=== PATIENT | female | born 1990 | race African-American/Black ===

== ENCOUNTER 2016-12-08 12:08 | Emergency (ER) | payer OTHER ==
[2016-12-08 12:11] VITALS: BP 132/83; PULSE 70; RESP 20; TEMP 100
[2016-12-08] MEDS ORDERED: ACETAMINOPHEN TAB 500 MG TAB PO STA (13:14)
--- NOTE | 2016-12-08 13:18 | ED ---
General Adult HPI - General Chief complaint: ENT Stated complaint: Sore Throat Time Seen by Provider: 12/08/16 12:59 Source: patient, RN notes reviewed Mode of arrival: ambulatory Limitations: no limitations - History of Present Illness Initial comments: This is a 26-year-old female who presents with a sore throat since . Patient states it hurts to swallow. Patient has noticed that she was felt "hot flashes "lately but has no measured fever. Patient denies any cough, congestion , otalgia, headache or sick contacts. Patient denies any abdominal pain, nausea /vomiting/diarrhea. Patient denies any chance of being . Patient denies any recent shortness breath, chest pain, back pain, numbness, tingling, hematuria, or visual changes, or any other complaints. - Related Data Home Medications Medication Instructions Recorded Confirmed Pnv with Ca,No.72/Iron/FA [Pnv 1 tab PO DAILY 06/30/16 06/30/16 Plus Multivit Tab] Previous Rx's Medication Instructions Recorded Amoxicillin 1,000 mg PO DAILY 10 Days 12/08/16 Lidocaine Viscous [Xylocaine 1 ml MUCOUS MEM Q3H 3 Days 12/08/16 Viscous 2%] Allergies Allergy/AdvReac Type Severity Reaction Status Date / Time No Known Allergies Allergy Verified 12/08/16 12:11 Review of Systems ROS Statement: Those systems with pertinent positive or pertinent negative responses have been documented in the HPI. ROS Other: All systems not noted in ROS Statement are negative. Past Medical History Past Medical History: No Reported History History of Any Multi-Drug Resistant Organisms: None Reported Past Surgical History: No Surgical Hx Reported Past Psychological History: No Psychological Hx Reported Smoking Status: Current every day smoker Past Alcohol Use History: Occasional Past Drug Use History: None Reported General Exam - General Exam Comments Initial Comments: General: The patient is awake and alert, in no distress, and does not appear acutely ill. Eye: Pupils are equal, round and reactive to light, extra-ocular movements are intact. No nystagmus. There is normal conjunctiva bilaterally. No signs of icterus. Ears: TMs pink and pearly with intact cone of light bilaterally. Normal external ear canals Nose: Nasal turbinates pink and moist Mouth and throat: There is erythematous posterior pharynx with tonsillar enlargement but no exudates. There are moist mucous membranes and no oral lesions. Neck: Posterior cervical chain lymphadenopathy and tender, anterior cervical chain lymphadenopathy present and tender. The neck is supple, there is no JVD. Cardiovascular: There is a regular rate and rhythm. No murmur, rub or gallop is appreciated. Respiratory: Lungs are clear to auscultation, respirations are non-labored, breath sounds are equal. No wheezes, stridor, rales, or rhonchi. Musculoskeletal: Normal ROM, no tenderness. Strength 5/5. Sensation intact. Radial pulses equal bilaterally 2+. Neurological: A&O x 3. CN II-XII intact, There are no obvious motor or sensory deficits. Coordination appears grossly intact. Speech is normal. Skin: Skin is warm and dry and no rashes or lesions are noted. Psychiatric: Cooperative, appropriate mood & affect, normal judgment. Limitations: no limitations Course Vital Signs 12/08/16 12:10 Temperature 100.0 F H Pulse Rate 70 Respiratory 20 Rate Blood Pressure 132/83 O2 Sat by Pulse 100 Oximetry Medical Decision Making - Medical Decision Making This is a 26-year-old female presents with sore throat since . On physical exam there is erythematous posterior pharynx with tonsillar enlargement but no exudates. There are moist mucous membranes and no oral lesions. Patient had a low-grade fever in the EC today and she was given Tylenol for this. A rapid strep was done and came back positive. I discussed the results with patient. I discussed that patient will be put on a course of amoxicillin. I discussed continued use of Tylenol and Motrin as needed for any pain or fever symptoms. I discussed the patient will be given a prescription for viscous lidocaine to help with sore throat symptoms. Discussed that this is contagious as patient has a young child at home. I discussed close follow- up with the patient's primary care physician in the next 1-2 days or to return to the [facility] for any worsening symptoms or for any further concerns. I discussed return parameters. Patient was receptive to this plan and patient will be discharged home - Lab Data Lab Results 12/08/16 Range/Units 13:19 Group A Strep Rapid Positive A (Negative) Disposition Clinical Impression: Strep throat Disposition: HOME SELF-CARE Condition: Good Instructions: Strep Throat (ED) Additional Instructions: Please finish the entire course of antibiotics. Please continue use of Tylenol and or Motrin as needed for any pain or fever symptoms. Please follow-up with your primary care physician in one to 2 days or return to the EC for any worsening symptoms or for any further concerns. Prescriptions: Amoxicillin 1,000 mg PO DAILY 10 Days Lidocaine Viscous [Xylocaine Viscous 2%] 1 ml MUCOUS MEM Q3H 3 Days Referrals: None,Stated [Primary Care Provider] - 1-2 days Maru Juarez MD [STAFF PHYSICIAN] - 1-2 days Michael Klein MD [STAFF PHYSICIAN] - 1-2 days Lavell Cordoba III, MD [STAFF PHYSICIAN] - 1-2 days Michelle Drake MD [REFERRING] - 1-2 days Time of Disposition: 13:48
== END 2016-12-08 13:54 | disposition home or self-care (01) ==
LOC: EC 12:08
DX: J02.0 Streptococcal pharyngitis (principal); F17.200 Nicotine dependence, unspecified, uncomplicated
CPT/HCPCS: 87430; 99283

== ENCOUNTER 2020-01-07 16:03 | Emergency (ER) | payer BC, OTHER ==
[2020-01-07 16:32] VITALS: BP 132/84; PULSE 97; RESP 18; TEMP 100
[2020-01-07] MEDS ORDERED: IBUPROFEN 600 MG TAB PO STA (17:21)
--- NOTE | 2020-01-07 17:37 | XR ---
EXAMINATION: XR chest 2V DATE AND TIME: 01/07/2020 5:11 PM CLINICAL INDICATION: PHH; cough TECHNIQUE: Departmental protocol COMPARISON: None FINDINGS: The lungs are clear. The pleural spaces are negative. The cardiac silhouette is not enlarged. The remainder of the mediastinal silhouette is unremarkable. The skeletal structures and soft tissues are negative for acute findings. IMPRESSION: NO ACUTE PROCESS.
--- NOTE | 2020-01-07 17:56 | ED ---
URI HPI - General Chief Complaint: Upper Respiratory Infection Stated Complaint: body aches/chest congestion Time Seen by Provider: 01/07/20 16:36 Source: patient Mode of arrival: ambulatory Limitations: no limitations - History of Present Illness Initial Comments: Patient is a 29-year-old female presents emergency Department with complaints of a cough, body aches, headache, generalized fatigue that started yesterday. Patient states the symptoms seem to be increasing today. She denies fever, abdominal pain. She does admit to mild nausea, no vomiting and no diarrhea. No urinary complaints. She denies history of asthma or COPD. She states her cough is nonproductive. She denies chest pain or shortness of breath. She has no other complaints at this time. Upon arrival to the ER, patient was febrile at 100.0, rest of vitals normal. - Related Data Home Medications Medication Instructions Recorded Confirmed Pnv,Calcium 72/Iron/Folic Acid 1 tab PO DAILY 06/30/16 06/30/16 [Pnv Plus Multivit Tab] Previous Rx's Medication Instructions Recorded Amoxicillin 1,000 mg PO DAILY 10 Days capsule 12/08/16 Lidocaine Viscous 2% [Xylocaine 1 ml MUCOUS MEM Q3H 3 Days ml 12/08/16 Viscous] Oseltamivir [Tamiflu] 75 mg PO Q12HR #10 cap 01/07/20 Allergies Allergy/AdvReac Type Severity Reaction Status Date / Time No Known Allergies Allergy Verified 01/07/20 16:29 Review of Systems ROS Statement: Those systems with pertinent positive or pertinent negative responses have been documented in the HPI. ROS Other: All systems not noted in ROS Statement are negative. Past Medical History Past Medical History: No Reported History History of Any Multi-Drug Resistant Organisms: None Reported Past Surgical History: No Surgical Hx Reported Past Psychological History: No Psychological Hx Reported Smoking Status: Current every day smoker Past Alcohol Use History: Occasional Past Drug Use History: None Reported General Exam - General Exam Comments Initial Comments: GENERAL: Well-appearing, well-nourished and in no acute distress. Patient appears mildly fatigued. HEAD: Atraumatic, normocephalic. EYES: Pupils equal round and reactive to light, extraocular movements intact, sclera anicteric, conjunctiva are normal. ENT: TMs normal, nares patent, oropharynx clear without exudates. Moist mucous membranes. NECK: Normal range of motion, supple without lymphadenopathy or JVD. LUNGS: Breath sounds clear to auscultation bilaterally and equal. No wheezes rales or rhonchi. HEART: Regular rate and rhythm without murmurs, rubs or gallops. ABDOMEN: Soft, nontender, normoactive bowel sounds. No guarding, no rebound. No masses appreciated. : Deferred EXTREMITIES: Normal range of motion, no pitting or edema. No clubbing or cyanosis. NEUROLOGICAL: Normal speech, normal gait. PSYCH: Normal mood, normal affect. SKIN: Warm, Dry, normal turgor, no rashes or lesions noted. Limitations: no limitations Course Vital Signs 01/07/20 16:30 Temperature 100 F H Pulse Rate 97 Respiratory 18 Rate Blood Pressure 132/84 O2 Sat by Pulse 100 Oximetry Medical Decision Making - Medical Decision Making Patient is a 29-year-old female presenting with flulike symptoms times one day. Patient was slightly febrile upon arrival. Motrin was given. Chest x-ray shows no acute findings. Influenza is positive for Type A. Vital signs are stable. Patient is requesting Tamiflu. Patient stable for discharge at this time. Return parameters were discussed with patient and she verbalized un derstanding. She is in agreement with this plan of care. - Lab Data Lab Results 01/07/20 Range/Units 17:00 Influenza Type A RNA Not Detected (Not Detectd) Influenza Type B (PCR) Detected H (Not Detectd) Disposition Clinical Impression: Influenza Disposition: HOME SELF-CARE Condition: Stable Instructions (If sedation given, give patient instructions): Influenza (ED) Additional Instructions: Please return to the Emergency Department if symptoms worsen or any other concerns. Continue with Tylenol or Motrin for body aches and fever control. Take Tamiflu as prescribed. Prescriptions: Oseltamivir [Tamiflu] 75 mg PO Q12HR #10 cap Is patient prescribed a controlled substance at d/c from ED?: No Referrals: Iwona Wolfe MD [Primary Care Provider] - 1-2 days
== END 2020-01-07 18:13 | disposition home or self-care (01) ==
LOC: EC 16:03
DX: J10.1 Influenza due to other identified influenza virus with other respiratory manifestations (principal); F17.200 Nicotine dependence, unspecified, uncomplicated
CPT/HCPCS: 71046; 87502; 99283

== ENCOUNTER → 2020-07-29 | Outpatient (CLI) | payer BC | END | disposition home or self-care (01) | LOC: LABWHC1 13:35 | PROVIDERS: ATTEND Emergency Medicine | DX: Z53.9 Procedure and treatment not carried out, unspecified reason (principal) ==

== ENCOUNTER → 2020-08-01 | Outpatient (CLI) | payer BC | END | disposition home or self-care (01) | LOC: LABWHC1 10:28 | PROVIDERS: ATTEND Emergency Medicine | DX: Z20.828 Contact with and (suspected) exposure to other viral communicable diseases (principal) | CPT/HCPCS: U0003; C9803 ==

== ENCOUNTER 2021-11-08 07:11 | Emergency (ER) | payer BC ==
--- NOTE | 2021-11-08 07:45 | ED ---
General Adult HPI - General Chief complaint: Back Pain/Injury Stated complaint: Lower Back Pain Time Seen by Provider: 11/08/21 07:41 Source: patient, RN notes reviewed Mode of arrival: ambulatory Limitations: no limitations - History of Present Illness Initial comments: 31-year-old female presents emergency Department with chief complaint of right flank pain. Patient states that the pain started last couple days. She notes little discomfort with urination may be darker than usual urine. Patient denies any chance no blood noted no history kidney stones no fevers or chills no significant abdominal pain. Patient offers no complaints. - Related Data Home Medications Medication Instructions Recorded Confirmed Ibuprofen [Advil] 400 mg PO Q6H PRN 11/08/21 11/08/21 Previous Rx's Medication Instructions Recorded Cephalexin [Keflex] 500 mg PO Q8HR #21 cap 11/08/21 Allergies Allergy/AdvReac Type Severity Reaction Status Date / Time No Known Allergies Allergy Verified 11/08/21 08:15 Review of Systems ROS Statement: Those systems with pertinent positive or pertinent negative responses have been documented in the HPI. ROS Other: All systems not noted in ROS Statement are negative. Past Medical History Past Medical History: No Reported History History of Any Multi-Drug Resistant Organisms: None Reported Past Surgical History: No Surgical Hx Reported Past Psychological History: No Psychological Hx Reported Smoking Status: Current every day smoker Past Alcohol Use History: Occasional Past Drug Use History: None Reported General Exam Limitations: no limitations General appearance: alert, in no apparent distress Head exam: Present: atraumatic, normocephalic, normal inspection Eye exam: Present: normal appearance, PERRL, EOMI. Absent: scleral icterus, conjunctival injection, periorbital swelling ENT exam: Present: normal exam, mucous membranes moist Neck exam: Present: normal inspection, full ROM. Absent: tenderness, meningismus, lymphadenopathy Respiratory exam: Present: normal lung sounds bilaterally. Absent: respiratory distress, wheezes, rales, rhonchi, stridor Cardiovascular Exam: Present: regular rate, normal rhythm, normal heart sounds. Absent: systolic murmur, diastolic murmur, rubs, gallop, clicks GI/Abdominal exam: Present: soft, normal bowel sounds. Absent: distended, tenderness, guarding, rebound, rigid Back exam: Present: CVA tenderness (R). Absent: CVA tenderness (L) Neurological exam: Present: alert Course Vital Signs 11/08/21 07:34 Temperature 99.1 F Pulse Rate 79 Respiratory 18 Rate Blood Pressure 144/88 O2 Sat by Pulse 100 Oximetry Medical Decision Making - Medical Decision Making 31-year-old in for right flank pain. Patient does have moderate bacteria and blood in her urine CT does not reveal any evidence of kidney stone. Patient has recheck infection we given antibiotics we discharged stable condition return parameters discussed. - Lab Data Lab Results 11/08/21 11/08/21 Range/Units 07:45 07:45 Urine Color Light Yellow Urine Appearance Cloudy H (Clear) Urine pH 6.5 (5.0-8.0) Ur Specific [place] 1.013 (1.001-1.035) Urine Protein Trace H (Negative) Urine Glucose (UA) Negative (Negative) Urine Ketones Negative (Negative) Urine Blood Small H (Negative) Urine Nitrite Negative (Negative) Urine Bilirubin Negative (Negative) Urine Urobilinogen <2.0 (<2.0) mg/dL Ur Leukocyte Esterase Moderate H (Negative) Urine RBC 15 H (0-5) /hpf Urine WBC 28 H (0-5) /hpf Ur Squamous Epith Cells 25 H (0-4) /hpf Urine Bacteria Moderate H (None) /hpf Urine Mucus Rare H (None) /hpf Urine HCG, Qual Not Detected (Not Detectd) Disposition Clinical Impression: UTI (urinary tract infection) Disposition: HOME SELF-CARE Condition: Stable Instructions (If sedation given, give patient instructions): Urinary Tract Infection in Women (ED) Additional Instructions: Please return to the Emergency Department if symptoms worsen or any other concerns. Prescriptions: Cephalexin [Keflex] 500 mg PO Q8HR #21 cap Is patient prescribed a controlled substance at d/c from ED?: No Referrals: Iwona Wolfe MD [Primary Care Provider] - 1-2 days Time of Disposition: 09:01
[2021-11-08 08:10] LABS: Appearance,Urine Cloudy (Clear); Bacteria,Urine Moderate /hpf; Bilirubin,Urine Negative (Negative); Blood,Urine Small (Negative); Color,Urine Light Yellow; Glucose,Urine (UA) Negative (Negative); Ketones,Urine Negative (Negative); Leukocyte Esterase,Urine Moderate (Negative); Mucus,Urine Rare /hpf; Nitrite,Urine Negative (Negative); PH, Urine 6.5 (5.0-8.0); Protein,Urine Trace (Negative); RBC,Urine 15 /hpf (0-5); Specific Gravity,Urine 1.013 (1.001-1.035); Squamous Epithelial Cell,Urine 25 /hpf (0-4); Urobilinogen,Urine <2.0 mg/dL (<2.0); WBC,Urine 28 /hpf (0-5)
--- NOTE | 2021-11-08 08:51 | CT ---
EXAMINATION TYPE: CT abdomen pelvis wo con DATE OF EXAM: 11/08/2021 COMPARISON: HISTORY: Low back pain, right flank pain CT DLP: 553 mGycm Automated exposure control for dose reduction was used. TECHNIQUE: Helical acquisition of images was performed from the lung bases through the pelvis. FINDINGS: LUNG BASES: Subsegmental changes left lung base most typical of atelectasis. LIVER/GB: No significant abnormality is appreciated. PANCREAS: No significant abnormality is seen. SPLEEN: No significant abnormality is seen. ADRENALS: No significant abnormality is seen. KIDNEYS: No significant abnormality is seen. ADENOPATHY: None visualized. OSSEOUS STRUCTURES: No significant abnormality is seen. BOWEL: No significant abnormality is seen. OTHER: Calcifications in the pelvis appear vascular. Asymmetric prominence of left ovary correlate. IMPRESSION: 1. No evidence of renal stone or hydronephrosis. 2. Asymmetric prominence of the left ovary could be physiologic correlate with short-term pelvic ultr asound as clinically warranted.
[2021-11-08] MEDS ORDERED: cefTRIAXone 1,000 MG VIAL (IM USE) IM STA (09:00)
[2021-11-08 09:24] VITALS: BP 120/74; PULSE 72; RESP 19; TEMP 98.1
== END 2021-11-08 09:12 | disposition home or self-care (01) ==
LOC: EC 07:11
DX: N39.0 Urinary tract infection, site not specified (principal); F17.200 Nicotine dependence, unspecified, uncomplicated
CPT/HCPCS: 99284; 96372; 81001; 81025; 87086; 87077; 87186; 74176; J0696